=== PATIENT | female | born 1995 | race Caucasian/White ===

== ENCOUNTER 2018-12-04 14:28 | Inpatient (IN) | payer MEDICAID, OTHER ==
[~2018-12-04] VITALS: Ht 157.5 cm; Wt 75.7 kg
[2018-12-04] MEDS ORDERED: MORPHINE SULFATE 4 MG/ML CPJ (NOT FOR IM USE) IV STA (16:32)
[2018-12-04] MEDS ORDERED: SODIUM CHLORIDE 0.9% 1,000 ML IV ONE (16:32)
[2018-12-04] MEDS ORDERED: ACETAMINOPHEN 325MG TABLET PO STA (16:32)
[2018-12-04] MEDS ORDERED: ONDANSETRON HCL 4MG/2ML INJ IV STA (16:32)
[2018-12-04 17:20] LABS: HEMATOCRIT. 36.6 % (36.0-48.0); HEMOGLOBIN. 12.3 g/dL (12.0-16.0); MEAN CORPUSCULAR HEMOGLOBIN 29.7 pg (28.0-32.0); MEAN CORPUSCULAR VOLUME 88.5 fL (81.0-99.0); MEAN PLATELET VOLUME 8.1 fl (7.4-10.4); PLATELET 496 x1000/uL (130-400); RED BLOOD CELL COUNT 4.13 mill/uL (4.2-5.4); RED CELL DISTRIBUTION WIDTH 12.8 % (11.6-14.6)
[2018-12-04 17:23] LABS: CHLORIDE 106 mEq/L (98-107)
[2018-12-04 17:26] LABS: HCG SCREEN NEGATIVE
[2018-12-04 17:32] LABS: CLARITY URINE CLOUDY (CLEAR); COLOR URINE YELLOW (YELLOW); KETONES URINE 4+ (NEGATIVE); LEUKOCYTE ESTERASE URINE 1+ (NEGATIVE); NITRITE URINE NEGATIVE (NEGATIVE); OCCULT BLOOD URINE 2+ (NEGATIVE); PH URINE 6.5 (4.5-8.0); PROTEIN URINE 1+ (NEGATIVE); SPECIFIC GRAVITY URINE 1.023 (1.005-1.030)
[2018-12-04 17:37] LABS: PLATELET ESTIMATE INCREASED
[2018-12-04] MEDS ORDERED: MORPHINE SULFATE 4 MG/ML CPJ (NOT FOR IM USE) IV ONE (20:15)
[2018-12-04] MEDS: DEXT 5%/0.45% NACL 1000ML 1,000 ML IV SCH (20:58)
[2018-12-04] MEDS ORDERED: LORAZEPAM 0.5MG TABLET PO PRN (21:00)
[2018-12-04] MEDS ORDERED: CEFTRIAXONE SODIUM 250 MG/VIAL IM NR (21:00)
[2018-12-04] MEDS ORDERED: ACETAMINOPHEN 325MG TABLET PO PRN (21:00)
[2018-12-04] MEDS ORDERED: ONDANSETRON HCL 4MG/2ML INJ IV PRN (21:00)
[2018-12-04] MEDS ORDERED: DOCUSATE SODIUM 100MG CAPSULE PO PRN (21:00)
[2018-12-04] MEDS ORDERED: POTASSIUM CHLORIDE INJ 40 MEQ in DEXT 5% WATER 500 ML IV NR (22:00)
[2018-12-04] MEDS ORDERED: DOXYCYCLINE 100 MG in DEXT 5% WATER 100 ML IV NR (23:00)
[2018-12-04] MEDS ORDERED: IOHEXOL-300 100 ML BOTTLE ONE (23:22)
[2018-12-04 23:25] VITALS: BP 109/65
[2018-12-05] MEDS ORDERED: KETOROLAC 30MG/ML VIAL IV PRN
[2018-12-05 04:00] VITALS: BP 103/63
[2018-12-05] MEDS: HYDROMORPHONE HCL/PF 2MG/ML CPJ IV PRN ×4 (04:32→23:02)
[2018-12-05] MEDS ORDERED: CEFTRIAXONE SODIUM 250 MG/VIAL IM NR (05:00)
[2018-12-05] MEDS: DEXT 5%/0.45% NACL 1000ML 1,000 ML IV SCH ×3 (05:11→20:24)
[2018-12-05] MEDS: METRONIDAZOLE 500 MG PREMIX 100 ML IV SCH ×2 (05:27→17:25)
[2018-12-05] MEDS ORDERED: METRONIDAZOLE 500 MG PREMIX 100 ML IV SCH (06:00)
[2018-12-05 07:16] LABS: BASOPHILS % 0.2 % (0.0-2.0); EOSINOPHILS % 0.7 % (0.0-5.0); HEMATOCRIT. 31.3 % (36.0-48.0); LYMPHOCYTES % 7.4 % (20.0-50.0); MEAN CORPUSCULAR HEMOGLOBIN 30.8 pg (28.0-32.0); MEAN CORPUSCULAR VOLUME 88.1 fL (81.0-99.0); MEAN PLATELET VOLUME 7.6 fl (7.4-10.4); MONOCYTES % 14.4 % (2.0-8.0); NEUTROPHILS % 77.3 % (40.0-76.0); PLATELET 460 x1000/uL (130-400); RED BLOOD CELL COUNT 3.56 mill/uL (4.2-5.4); RED CELL DISTRIBUTION WIDTH 12.6 % (11.6-14.6)
[2018-12-05 08:00] VITALS: BP 103/52
[2018-12-05 08:02] LABS: *AMPHETAMINES SCREEN URINE NEGATIVE (NEGATIVE); *BARBITURATES SCREEN URINE NEGATIVE (NEGATIVE); *COCAINE SCREEN URINE NEGATIVE (NEGATIVE); CANNABINOID URINE SCREEN NEGATIVE (NEGATIVE); PHENCYCLIDINE URINE SCREEN NEGATIVE (NEGATIVE)
[2018-12-05 08:03] LABS: *BENZODIAZEPINES SCREEN URINE NEGATIVE (NEGATIVE); METHADONE URINE SCREEN NEGATIVE (NEGATIVE)
[2018-12-05 08:12] LABS: OPIATES URINE SCREEN PRESUMTIVE POSITIVE (NEGATIVE)
[2018-12-05] MEDS: DOXYCYCLINE 100 MG in DEXT 5% WATER 100 ML IV SCH ×2 (08:46→20:32)
[2018-12-05] MEDS ORDERED: DOXYCYCLINE 100 MG in DEXT 5% WATER 100 ML IV SCH (09:00)
[2018-12-05 12:00] VITALS: BP 105/64
[2018-12-05 16:00] VITALS: BP 110/65
[2018-12-05 17:32] LABS: CHLORIDE 107 mEq/L (98-107)
[2018-12-05 20:00] VITALS: BP 108/62
[2018-12-05] MEDS: POTASSIUM CHLORIDE 20MEQ TABLET SR PO SCH (21:46)
[2018-12-06] VITALS: BP 110/65
[2018-12-06 04:00] VITALS: BP 110/62
[2018-12-06] MEDS: DEXT 5%/0.45% NACL 1000ML 1,000 ML IV SCH (05:00)
[2018-12-06] MEDS: METRONIDAZOLE 500 MG PREMIX 100 ML IV SCH (05:19)
[2018-12-06] MEDS: POTASSIUM CHLORIDE 20MEQ TABLET SR PO SCH (05:19)
[2018-12-06] MEDS: HYDROMORPHONE HCL/PF 2MG/ML CPJ IV PRN ×2 (05:20→08:47)
[2018-12-06] MEDS ORDERED: DOXY100T2 MT (06:03)
[2018-12-06] MEDS ORDERED: IBUP-2030 MT (06:03)
[2018-12-06] MEDS ORDERED: OXYC-100 MT (06:03)
[2018-12-06 06:06] LABS: BASOPHILS % 0.2 % (0.0-2.0); EOSINOPHILS % 1.4 % (0.0-5.0); HEMATOCRIT. 30.6 % (36.0-48.0); HEMOGLOBIN. 10.5 g/dL (12.0-16.0); LYMPHOCYTES % 14.9 % (20.0-50.0); MEAN CORPUSCULAR HEMOGLOBIN 30.5 pg (28.0-32.0); MEAN CORPUSCULAR VOLUME 88.5 fL (81.0-99.0); MEAN PLATELET VOLUME 7.8 fl (7.4-10.4); MONOCYTES % 12.5 % (2.0-8.0); PLATELET 484 x1000/uL (130-400); RED BLOOD CELL COUNT 3.45 mill/uL (4.2-5.4); RED CELL DISTRIBUTION WIDTH 12.7 % (11.6-14.6)
[2018-12-06 08:00] VITALS: BP 90/57
[2018-12-06] MEDS: DOXYCYCLINE 100 MG in DEXT 5% WATER 100 ML IV SCH (08:09)
[2018-12-06 10:59] VITALS: BP 97/57
== END 2018-12-06 12:06 | disposition home or self-care (01) | DRG 531 ==
LOC: ER 14:28 → 6EST 17:32 → ENRESERV 22:08
PROVIDERS: ADMIT Specialist; ATTEND Specialist
DX: N73.9 Female pelvic inflammatory disease, unspecified (principal); D72.829 Elevated white blood cell count, unspecified; N70.11 Chronic salpingitis; E87.6 Hypokalemia; F17.210 Nicotine dependence, cigarettes, uncomplicated
CPT/HCPCS: 36415; 74177; 76830; 76856; 80048; 80305; 81003; 83605; 84703; 99285; J0696; J1170; J2270; J2405; J3480; J3490; J7030; J7060; Q9967